=== PATIENT | male | born 1965 | race Two or more races ===

== ENCOUNTER 2020-04-04 10:16 | Emergency (ER) | payer OTHER ==
[~2020-04-04] VITALS: Ht 165.1 cm; Wt 65.8 kg
[~2020-04-04 10:16] MED LIST: ALBU90OI INH; ALBU90OI61 INH; CENTRUM COMPLE1 EACH PO; CEPH500 PO; CLARITIN10 MG PO; Cipro500 MG PO; Ciprodex Otic7.5 ML LEFTEAR; DOXY100 PO; ETHA400 PO; GLIM4 PO; GNP IBUPROFEN PO; GUAI600T33 PO; INSULANPEN SC; ISON300 PO; METF500 PO; NEOCOLOTSU LEFTEAR; PYRA500 PO; RIFA300 PO; Vitamin B-650 MG PO
== END 2020-04-04 11:05 | disposition home or self-care (01) ==
LOC: ER 10:16
DX: Z00.00 Encounter for general adult medical examination without abnormal findings (principal)
CPT/HCPCS: 99282